=== PATIENT | male | born 1990 | race Caucasian/White ===

== ENCOUNTER 2016-12-31 14:33 | Inpatient (IN) | payer OTHER ==
[~2016-12-31] VITALS: Ht 175.3 cm; Wt 86.3 kg
--- NOTE | ~2016-12-31 | HC ---
[facility] [place] [address] CONSULTATION Name: RA AVELAR Room #: 404-P ADM IN M.R.#: [id number] Admission: 12/31/16 Attend Phys: Deep Singh MD Discharge: Date of : 89 Report #: [id number] THIS REPORT FOR: //name// CC: Ana Singh [facility] DATE OF SERVICE: 01/01/2017 IDENTIFICATION: Psychiatric consultation is requested for psychosis. HISTORY OF PRESENT ILLNESS: The patient is a 26-year-old male with an unknown past psychiatric history, reports indicate some history of depression, but details are vague. The patient presented to the hospital with bizarre behavior. He had been pulling fire alarms in college; making delusional, grandiose statements about fixing the world and using ____ music. While in the Emergency Department, he told staff he would hurt them. Affidavits have been filled out by two separate individuals. The patient is noncompliant on interview today. ALLERGIES: None. MEDICATIONS: No home psychiatric medication. PAST MEDICAL HISTORY: None. FAMILY HISTORY: Unknown. SOCIAL HISTORY: Reported to have some college. Smokes cigarettes. Further details unknown. LABORATORY: Urine drug screen positive for cannabis. MENTAL STATUS EXAMINATION: Disheveled appearance. Uncooperative. After introducing myself, he promptly tells me to leave and to "fuck off." Affect hostile. Insight and judgment poor. Refused to answer any questions. DIAGNOSIS: Psychosis, not otherwise specified, rule out bipolar disorder versus schizophrenia. PLAN: The patient is hostile, agitated and making threatening statements in context of psychosis. Two affidavits have been filled out. Therefore, I do agree with the need for inpatient psychiatric hospitalization on an involuntary basis. Continue the sitter. I have ordered Benadryl, Ativan and Haldol to be given as needed for agitation. [facility] [address] [place] [address] CONSULTATION Name: RA AVELAR Room #: 404-P [facility]#: [id number] Admission: 12/31/16 Attend Phys: Deep Singh MD Discharge: Date of : 89 Report #: [id number] Thank you for this consultation. Please contact me with any further questions or concerns. By: [id number] Narda Plata MD /nt
[~2016-12-31 14:33] MED LIST: ZOFRAN ODT4 MG PO
[2016-12-31 14:59] LABS: ABSOLUTE NEUTROPHILS 5.1 thou/uL (1.4-8.2); BASOPHILS 0.4 % (0.0-2.0); EOSINOPHILS 0.1 % (0.0-3.0); HEMATOCRIT 40.6 % (42.0-52.0); HEMOGLOBIN 13.9 gm/dL (14.0-18.0); LYMPHOCYTES 14.3 % (24.0-44.0); MCH 31.4 pg (26.0-34.0); MCHC 34.3 g/dL (28.0-37.0); MCV 91.7 fL (80.0-100.0); MONOCYTES 7.9 % (1.0-8.0); PLATELET COUNT 251 thou/uL (150-400); POLYS 77.3 % (36.0-66.0); RBC 4.43 mil/uL (4.50-6.00); RDW 12.8 % (10.5-14.5); WBC 6.6 thou/uL (4.0-11.0)
[2016-12-31 15:00] LABS: MANUAL DIFF NO
[2016-12-31 15:13] LABS: CALCIUM 9.2 mg/dL (8.5-10.1); CREATININE 0.9 mg/dL (0.7-1.3); POTASSIUM 3.6 mmol/L (3.5-5.1)
[2016-12-31 15:23] LABS: SALICYLATE 3.9 mg/dL (2.8-20.0)
[2016-12-31 15:34] LABS: ACETAMINOPHEN < 2 ug/mL (10-30)
[2016-12-31 16:14] LABS: AMP/METHAMP Negative (Negative); BARBITURATES Negative (Negative); BENZODIAZEPINES Negative (Negative); COCAINE Negative (Negative); METHADONE Negative (Negative); OPIATES Negative (Negative); PCP Negative (Negative); THC POSITIVE (Negative)
[2017-01-01] VITALS (7 sets, daily range): BP systolic 138–164; BP diastolic 76–107
[2017-01-02 02:33] LABS: URINE BILIRUBIN NEGATIVE (Negative); URINE BLOOD NEGATIVE (Negative); URINE COLOR YELLOW; URINE GLUCOSE-RANDOM* NEGATIVE (Negative); URINE KETONES NEGATIVE (Negative); URINE LEUKOCYTES-REFLEX NEGATIVE (Negative); URINE PROTEIN (DIPSTICK) NEGATIVE (Negative); URINE SPECIFIC GRAVITY <= 1.005 (1.003-1.035); URINE UROBILINOGEN 0.2 E.U./dl (0.2-1.0)
[2017-01-02 04:53] VITALS: BP 141/102
[2017-01-02 05:35] LABS: HEMOGLOBIN 13.6 gm/dL (14.0-18.0); MCH 31.4 pg (26.0-34.0); MCV 92.4 fL (80.0-100.0); RBC 4.33 mil/uL (4.50-6.00); RDW 12.6 % (10.5-14.5); WBC 4.8 thou/uL (4.0-11.0)
[2017-01-02 05:50] LABS: CALCIUM 9.2 mg/dL (8.5-10.1); CREATININE 0.9 mg/dL (0.7-1.3); POTASSIUM 3.6 mmol/L (3.5-5.1)
[2017-01-02 09:15] VITALS: BP 155/85
[2017-01-02 15:14] VITALS: BP 152/97
[2017-01-02 18:54] VITALS: BP 152/85
[2017-01-03 04:16] VITALS: BP 135/97
[2017-01-03 08:00] VITALS: BP 125/87
[2017-01-03 16:47] VITALS: BP 142/101
[2017-01-03 17:48] VITALS: BP 142/101
[2017-01-03 20:00] VITALS: BP 139/95
[2017-01-04 04:00] VITALS: BP 162/99
[2017-01-04 08:15] VITALS: BP 130/88
[2017-01-04 11:30] VITALS: BP 153/103
[2017-01-04 12:30] VITALS: BP 146/99
[2017-01-04 15:25] VITALS: BP 159/98
== END 2017-01-04 19:10 | DRG 885 ==
LOC: ER 14:33 → 4N 23:56 → EROBS 23:56 → 4N 01-01 00:36
PROVIDERS: Emergency Medicine; Hospitalist; Nurse Practitioner Family
DX: F23 Brief psychotic disorder (principal); G92 Toxic encephalopathy; F19.10 Other psychoactive substance abuse, uncomplicated; F17.210 Nicotine dependence, cigarettes, uncomplicated
CPT/HCPCS: 10091